=== PATIENT | female | born 1985 | race Asian ===

== ENCOUNTER 2025-01-17 22:06 | Emergency (ER) | payer OTHER, SELFPAY ==
[2025-01-17 22:11] VITALS: BP 122/85
[2025-01-17 22:36] LABS: % Basophils 0.2 % (0-2); % Eosinophils 0.7 % (0-6); % Immature Granulocytes 0.8 % (0-0.5); % Lymphocytes 45.1 % (20.5-51.1); % Monocytes 3.8 % (1.7-9.3); % Neutrophils 49.4 % (42.2-75.2); Absolute Eosinophils 0.1 10^3/uL (0-0.7); Absolute Immature Granulocytes 0.1 10^3/uL (0-0.05); Absolute Lymphocytes 4.8 10^3/uL (1.2-3.4); Absolute Monocytes 0.4 10^3/uL (0.1-0.6); Absolute Neutrophils 5.3 10^3/uL (1.4-6.5); Hematocrit 42.6 % (37.0-47.0); Hemoglobin 14.8 g/dL (12.0-16.0); Mean Corp Hgb Conc. 34.7 g/dL (33.0-37.0); Mean Corpuscular Hgb 26.8 pg (27.0-31.0); Mean Corpuscular Volume 77.2 fL (81.0-99.0); Mean Platelet Volume 10.5 fL (7.4-10.4); Nucleated Red Blood Cells % 0 %; Platelet Count 271 10^3/uL (130-400); Red Blood Cell Count 5.52 10^6/uL (4.20-5.40); Red Cell Dist. Width 12.3 % (11.5-14.5); White Blood Cell Count 10.6 10^3/uL (4.8-10.8)
[2025-01-17 22:43] LABS: HCG, Serum Qualitative Screen Negative
[2025-01-17 22:50] LABS: ALT (SGPT) 52 U/L (0-35); AST (SGOT) 22 U/L (14-36); Albumin 4.3 g/dl (3.5-5.0); Alkaline Phosphatase 57 U/L (38-126); Blood Urea Nitrogen 15 mg/dl (7-17); Calcium 9.6 mg/dl (8.4-10.2); Carbon Dioxide 29 mmol/L (22-30); Chloride 99 mmol/L (98-107); Glucose 472 mg/dl (70-99); Potassium 4.1 mmol/L (3.5-5.1); Sodium 134 mmol/L (135-145); Total Bilirubin 0.5 mg/dl (0.2-1.3); Total Protein 7.4 g/dl (6.3-8.2); eGFR > 60.00
[2025-01-17 22:59] LABS: Troponin I < 0.012 ng/ml
--- NOTE | 2025-01-18 00:13 | ED.GENMED ---
History of Present Illness
General
Chief Complaint: Chest Problem
Time Seen by Provider: 01/17/25 23:42
History of Present Illness
History of Present Illness:
39-year-old female presents the emergency department for evaluation of chest tightness that has been ongoing for the past 10 days. Initially she had fevers and coughing, was seen by her primary care physician who was putting her on a course of
steroids for suspected viral bronchitis. She completed the steroids 3 days ago however symptoms persisted thus 2 days ago she went to her local ER at [facility] where COVID and flu test were negative and a chest x-ray was obtained that
was reportedly unremarkable. Symptoms persisted prompting her to come to the ED today. Denies any clear provoking or palliating factors, no positional or exertional component to it. Denies any pleuritic chest pain. No lower extremity edema.
Review of Systems
Review of Systems
Allergies reviewed?: Yes
All Other Systems: ROS reviewed and negative except as documented in HPI and ROS
Phy Exam
Physical Exam
Physical Exam:
GEN: Well appearing, NAD, WDWN
HEENT: Oral mucosa moist, no scleral icterus
Cardiac: Regular rate and rhythm, no murmurs
Lung: No respiratory distress, no tachypnea, lungs clear to auscultation bilaterally
MSK: No gross deformity or injuries
Skin: Good color, no pallor or jaundice, no rashes
Neuro: AO x3, moves all extremities freely
Psych: Calm, cooperative
Course
Orders/Labs/Results
Orders:
Orders
01/17/25 22:06
Electrocardiogram (*1) Urgent
Reason for Study: Chest Pain
01/17/25 22:07
EKG- Treatment ONCE
01/17/25 22:15
Test Result ONCE
01/17/25 22:22
Complete Blood Count/With Diff Urgent
Comprehensive Metabolic Panel Urgent
HCG, Serum Qualitative Screen Urgent
Comment: Notify provider if positive test present
Troponin I Urgent
01/18/25 00:12
Insulin Aspart [NOVOLOG vial] 10 units SC NOW STA
Lactated Ringers [Lr] 1,000 ml IV BOLUS
CR Chest - 2 Views Urgent
Comment:
Reason For Exam: chest tightness
Abnormal Lab Results
01/17/25
22:22
RBC 5.52 H 10^6/uL
(4.20-5.40)
MCV 77.2 L fL
(81.0-99.0)
MCH 26.8 L pg
(27.0-31.0)
MPV 10.5 H fL
(7.4-10.4)
Abs Immat Gran (auto) 0.1 H 10^3/uL
(0-0.05)
Absolute Lymphs (auto) 4.8 H 10^3/uL
(1.2-3.4)
Immature Gran % 0.8 H %
(0-0.5)
Sodium 134 L mmol/L
(135-145)
Glucose 472 H* mg/dl
(70-99)
ALT 52 H U/L
(0-35)
01/17/25 22:22
01/17/25 22:22
Vital Signs
Initial and Last Documented VS:
Initial Vital Signs
Temp Pulse Resp BP Pulse Ox
98.3 F 95 16 122/85 98
01/17/25 22:11 01/17/25 22:11 01/17/25 22:11 01/17/25 22:11 01/17/25 22:11
Last Documented Vital Signs
Temp Pulse Resp BP Pulse Ox
98.3 F 95 16 122/85 98
01/17/25 22:11 01/17/25 22:11 01/17/25 22:11 01/17/25 22:11 01/17/25 22:11
MDM/Problems Addressed
MDM/Problems Addressed:
Because the patient's chest discomfort is not clear however she has normal EKG and negative cardiac enzymes, meets PE rule out criteria thus no D-dimer is indicated. Chest x-ray shows no infiltrates or fluids. She does not describe a picture that
is consistent with pericarditis or myocarditis. Do not feel that her new hyperglycemia is causing the symptoms, may be a pleurisy related to recent viral URI. In regards to the hyperglycemia she has no electrolyte shifting suggestive of DKA. Will
treat with subcu insulin and IV fluids and repeat glucose check. Will start the patient on metformin and recommend close outpatient primary care follow-up
*Critical Care Note
Total Time (30-74mins, 75-104mins- exclusive of procedures): Not Applicable
ED Attending Note
-
Portions of this chart may have been created with voice recognition software.� Occasional wrong word or��sound alike� substitutions may have occurred due to the inherent limitations of voice recognition software.
Discharge Plan
Departure
Patient Disposition: Home (Routine Discharge)
Date of Disposition: 01/18/25
Time of Disposition: 00:57
Patient with high blood pressure during this ER visit?: No
Discharge Problem:
Acute hyperglycemia, Atypical chest pain
Instructions: High blood sugar in adults - ED discharge instructions
Prescriptions:
New
metformin 500 mg tablet
500 mg PO BID Qty: 60 2RF
Referrals:
NONE,* [Family Provider, Internal Medicine]
Activity Restrictions/Additional Instructions:
[facility]
[address]
[place] [address]
[phone]
If you are unable to make a hospital follow-up appointment with your primary care physician please consider following up with the above listed family welfare social work professor practice for close follow-up care of your diabetes
If your chest pain worsens please consider coming back to the emergency department for reevaluation
Although the medication will help your blood sugar, dietary changes are the most important. Resources can be found on the [place] [employer] website as far as dietary modifications however the basics of this include minimizing highly
processed foods and simple sugars
Interventions
Interventions:
*Risk Screen - Suicide Last Done: 01/17/25 22:11
*General Assessment Last Done: 01/17/25 22:11
*Neglect/Abuse Screening Last Done: 01/17/25 22:11
*ED- Fall Risk Assessment Last Done: 01/18/25 00:07
ED- Cardiac Assessment Last Done: 01/18/25 00:07
Discharge Date and Time
Print Language: BULGARIAN
[2025-01-18] MEDS: NOVOLOG vial 10 UNITS SC (00:24)
[2025-01-18] MEDS: LR 1000 IV (00:38)
[2025-01-18 01:38] LABS: Glucose - Point of Care 366 mg/dl (70-99)
[2025-01-18 08:47] LABS: Glycohemoglobin (HgbA1c) 12.8 % (4.0-5.6)
== END 2025-01-18 02:00 | disposition home or self-care (01) ==
LOC: EMR 22:06
PROVIDERS: EMERGENCY PHYSICIAN Emergency Medicine
DX: R73.9 Hyperglycemia, unspecified (principal); R07.89 Other chest pain
CPT/HCPCS: 96372; 96360; 99285; 71046; 80053; 82962; 83036; 84484; 84703; 85025; 93005